=== PATIENT | male | born 1985 | race Caucasian/White ===

== ENCOUNTER → 2020-12-06 | Outpatient (CLI) | payer BC ==
[~2020-12-06] MED LIST: XANAX 0.5MG0.5 MG PO
== END ==
LOC: COL.RAD 11-14 08:15
DX: M51.27 Other intervertebral disc displacement, lumbosacral region (principal)

== ENCOUNTER → 2020-12-17 | Outpatient (CLI) | payer BC ==
[~2020-12-17] VITALS: Ht 170.2 cm; Wt 86.3 kg
[2020-12-17 12:08] VITALS: BP 120/70; PULSE 67; TEMP 97.6
[2020-12-17 14:05] VITALS: BP 120/82; PULSE 67
== END ==
LOC: COL.RAD 11:27
DX: M51.36 Other intervertebral disc degeneration, lumbar region (principal)
CPT/HCPCS: J3301

== ENCOUNTER → 2021-01-22 | Outpatient (CLI) | payer BC ==
[~2021-01-22] VITALS: Ht 170.2 cm; Wt 83.1 kg
[2021-01-22 13:16] VITALS: BP 110/75; PULSE 64; TEMP 98
[2021-01-22 14:25] VITALS: BP 125/73; PULSE 64
== END ==
LOC: COL.RAD 12:54
DX: M51.36 Other intervertebral disc degeneration, lumbar region (principal)
CPT/HCPCS: J3301